=== PATIENT | female | born 1995 | race Caucasian/White ===

== ENCOUNTER 2021-03-11 09:37 | Emergency (ER) | payer OTHER ==
[~2021-03-11] VITALS: Ht 157.5 cm; Wt 70.8 kg
[2021-03-11 09:45] VITALS: BP 160/74
[2021-03-11] MEDS ORDERED: BUPIVACAINE MPF 0.5% 30 ML VIAL. ONE (09:55)
[2021-03-11] MEDS ORDERED: BUPIVACAINE MPF 0.25% 10 ML VIAL. IJ ONE (10:00)
--- NOTE | 2021-03-11 10:45 | RAD ---
EXAM: CHEST ONE VIEW. HISTORY: Cough. COMPARISON: None. FINDINGS: A frontal view of the chest is obtained. There are no confluent infiltrates. There is no pneumothorax or pleural effusion. The heart is not en larged. There is a mild to moderate thoracic dextroscoliosis. IMPRESSION: 1. No confluent infiltrates. Electronically signed by: Kenny Nguyen MD (03/11/2021 10:43 AM) [id number]
--- NOTE | 2021-03-11 10:45 | RAD ---
EXAM: Left lung clear, 3 views. HISTORY: Trauma. COMPARISON: None. FINDINGS: 3 views of the left lung finger are obtained. There is a displaced fracture of the tuft of the third distal phalanx with overlying soft tissue laceration. No radiodense foreign body is seen. IMPRESSION: Displaced fracture of the tuft of the third distal phalanx with overlying soft tissue lac eration. Electronically signed by: Addie Espinoza MD (03/11/2021 10:42 AM) [facility]
[2021-03-11] MEDS ORDERED: CEPHALEXIN 250 MG CAPSULE. PO ONE (11:00)
[2021-03-11 11:11] LABS: INFLUENZA A PATIENT NEGATIVE (NEGATIVE); INFLUENZA B PATIENT NEGATIVE (NEGATIVE)
--- NOTE | 2021-03-11 11:12 | PHYS DOC ---
Past Medical History Additional Past Medical Histor: Heart murmur has a child Past Surgical History: Tonsillectomy, Other Additional Past Surgical Histo: wisdom teeth Smoking Status: Never Smoker Alcohol Use: Occasionally General Adult EDM: Chief Complaint: LEFT MIDDLE FINGER INJURY HPI: HPI: Patient is a 26 year old FEMALE who presented to the ER for evaluation of left middle finger injury. Patient accidentally shut the door onto her left middle finger this morning when she was taking her dog out. Patient was up-to-date on her tetanus status. Patient had her first shot of COVID VACCINE last month, she did not have her second shot yet. Patient works as a nurse. She has have upper respiratory infection with nonproductive cough, nasal congestion for several days. Patient also has diarrhea. Patient has some fever and chills this morning, she took ibuprofen and Tylenol before coming here. Review of Systems: Review of Systems: Constitutional: Positive for fever and chills. [] Eyes: Denies change in visual acuity. [] HENT: Denies nasal congestion or sore throat. [] Respiratory: Positive for cough , no shortness of breath. [] Cardiovascular: Denies chest pain or edema. [] GI: Denies abdominal pain, nausea, vomiting, bloody stools, positive for diarrhea. : Denies dysuria. [] Musculoskeletal: Denies back pain or joint pain. Positive for left middle fin diana injury. Integument: Denies rash. [] Neurologic: Denies headache, focal weakness or sensory changes. [] Endocrine: Denies polyuria or polydipsia. [] Lymphatic: Denies swollen glands. [] Psychiatric: Denies depression or anxiety. [] Heart Score: C/O Chest Pain: N/A Risk Factors: Risk Factors: DM, Current or recent (<one month) smoker, HTN, HLP, family history of CAD, obesity. Risk Scores: Score 0 - 3: 2.5% MACE over next 6 weeks - Discharge Home Score 4 - 6: 20.3% MACE over next 6 weeks - Admit for Clinical Observation Score 7 - 10: 72.7% MACE over next 6 weeks - Early Invasive Strategies Current Medications: Current Medications Medications (Trade) Dose Ordered Sig/Vahid Start Time Stop Time Status Last Admin Dose Admin Bupivacaine HCl (Sensorcaine Mpf 0.5%) 30 ml STK-MED ONCE 03/11/21 09:55 03/11/21 09:56 DC Bupivacaine HCl (Sensorcaine-Mpf 0.25%) 10 ml 1X ONCE 03/11/21 10:00 03/11/21 10:05 DC 03/11/21 10:00 10 ML Cephalexin HCl (Keflex) 1,000 mg 1X ONCE 03/11/21 11:00 03/11/21 11:01 DC 03/11/21 10:54 1,000 MG Allergies: Allergies: Allergies Coded Allergies Type Severity Reaction Last Updated Verified No Known Drug Allergies 03/11/21 No Physical Exam: PE: Constitutional: Well developed, well nourished, no acute distress, non-toxic appearance. [] HENT: Normocephalic, atraumatic, bilateral external ears normal, oropharynx moist, no oral exudates, nose normal. [] Eyes: PERRLA, EOMI, conjunctiva normal, no discharge. [] Neck: Normal range of motion, no tenderness, supple, no stridor. [] Cardiovascular: sinus tachycardia, regular rhythm, no murmur [] Lungs & Thorax: Bilateral breath sounds clear to auscultation [] Abdomen: Bowel sounds normal, soft, no tenderness, no masses, no pulsatile masses. [] Skin: Warm, dry, no erythema, no rash. [] Back: No tenderness, no CVA tenderness. [] Extremities: partial amputation of tip of left middle finger on the dorsal surface, half of the nailbed laceration horizontally, the pad of the finger was intact. No pulsating bleeding. No other injury. Neurologic: Alert and oriented X 3, normal motor function, normal sensory function, no focal deficits noted. [] Psychologic: Affect normal, judgement normal, mood normal. [] Current Patient Data: Labs: Laboratory Tests Test 03/11/21 10:40 Influenza Type A Antigen Negative Influenza Type B Antigen Negative SARS-CoV-2 Antigen (Rapid) Negative Current Medications Medications (Trade) Dose Ordered Sig/Vahid Route PRN Reason Start Time Stop Time Status Last Admin Dose Admin Bupivacaine HCl (Sensorcaine-Mpf 0.25%) 10 ml 1X ONCE IJ 03/11/21 10:00 03/11/21 10:05 DC 03/11/21 10:00 Bupivacaine HCl (Sensorcaine Mpf 0.5%) 30 ml STK-MED ONCE .ROUTE 03/11/21 09:55 03/11/21 09:56 DC Cephalexin HCl (Keflex) 1,000 mg 1X ONCE PO 03/11/21 11:00 03/11/21 11:01 DC 03/11/21 10:54 Vital Signs: Vital Signs Date Time Temp Pulse Resp B/P (MAP) Pulse Ox O2 Delivery O2 Flow Rate FiO2 03/11/21 09:45 99.5 134 20 160/74 (102) 100 Room Air 99.5 EKG: EKG: [] Radiology/Procedures: Radiology/Procedures: [facility] [address] [place] [address] IMAGING REPORT Signed PATIENT: ZENAIDA NUNEZ ACCOUNT: [id number] : 1995 LOCATION: ER AGE: 26 SEX: F EXAM STATUS: REG ER ORD. PHYSICIAN: MIKE JOSEPH DO REASON: left middle finger injury PROCEDURE: FINGER(S) LEFT EXAM: Left lung clear, 3 views. HISTORY: Trauma. COMPARISON: None. FINDINGS: 3 views of the left lung finger are obtained. There is a displaced fracture of the tuft of the third distal phalanx with overlying soft tissue laceration. No radiodense foreign body is seen. IMPRESSION: Displaced fracture of the tuft of the third distal phalanx with overlying soft tissue laceration. Electronically signed by: Addie Phillips MD (03/11/2021 10:42 AM) [facility] DICTATED and SIGNED BY: ADDIE PHILLIPS MD DATE: 03/11/21 [id number] [facility] [address] [place] [address] IMAGING REPORT Signed PATIENT: ZENAIDA NUNEZ ACCOUNT: [id number] : 1995 LOCATION: ER AGE: 26 SEX: F EXAM STATUS: REG ER ORD. PHYSICIAN: MIKE JOSEPH DO REASON: cough for a few day PROCEDURE: CHEST AP ONLY EXAM: CHEST ONE VIEW. HISTORY: Cough. COMPARISON: None. FINDINGS: A frontal view of the chest is obtained. There are no confluent infiltrates. There is no pneumothorax or pleural effusion. The heart is not enlarged. There is a mild to moderate thoracic dextroscoliosis. IMPRESSION: 1. No confluent infiltrates. Electronically signed by: Kenny Nguyen MD (03/11/2021 10:43 AM) [id number] DICTATED and SIGNED BY: GERALDO NGUYEN MD DATE: 03/11/21 [id number] 0 Course & Med Decision Making: Course & Med Decision Making Pertinent Labs and Imaging studies reviewed. (See chart for details) Consulted Orthopedic surgeon distance education faculty liaison, Dr. Mukund Sterling, who came to the ER to repair the NAILBED laceration AND OPEN TUFT FRACTURE OF LEFT MIDDLE FINGER. Dragon Disclaimer: Dragon Disclaimer: This electronic medical record was generated, in whole or in part, using a voice recognition dictation system. Departure Departure Impression: Primary Impression: Open fracture of tuft of distal phalanx of finger Additional Impression: Person under investigation for COVID-19 Disposition: HOME / SELF CARE / HOMELESS Condition: IMPROVED Referrals: NO PCP (PCP) MUKUND STERLING DO Please follow up with Dr. Sterling or his partner Dr. Thomas next week. ISAEL THOMAS Jr. DO Patient Instructions: Finger Fracture Additional Instructions: Thank you for visiting our Emergency Department. We appreciate you trusting us with your care. If any additional problems come up don't hesitate to return to visit us. Please follow up with your primary care provider so they can plan parvez tional care if needed and know about the problem that you had. If symptoms worsen come back to the Emergency Department. Any concerning symptoms that start such as chest pain, shortness of air, weakness or numbness on one side of the body, running high fevers or any other concerning symptoms return to the ER. Scripts Hydrocodone/Acetaminophen (Hydrocodone-Acetamin 5-325 mg) 1 Each Tablet 1 EACH PO Q6HRS PRN for PAIN, #20 TAB Prov: MIKE JOSEPH DO 03/11/21 Amoxicillin/Potassium Clav (AUGMENTIN 875-125 TABLET) 1 Each Tablet 1 TAB PO BID for 10 Days, #20 TAB 0 Refills Prov: MIKE JOSEPH DO 03/11/21 MIKE JOSEPH DO Mar 11, 2021 11:12
[2021-03-11] MEDS ORDERED: AMOX1TAB61 PO (12:36)
[2021-03-11] MEDS ORDERED: HYDR-2759 PO (12:36)
--- NOTE | 2021-03-11 12:48 | PDOC2 ---
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 She denies any other injuries to this left middle finger. She was brought to the emergency department x-rays were obtained which showed that she did have a tuft fracture as well as a partially amputated left fingertip with a nailbed injury. Current Problem List Problem List Problems Medical Problems: (1) Open fracture of tuft of distal phalanx of finger Status: Acute Current Medications Current Medications Current Medications Bupivacaine HCl (Sensorcaine-Mpf 0.25%) 10 ml 1X ONCE IJ Last administered on 03/11/21at 10:00; Start 03/11/21 at 10:00; Stop 03/11/21 at 10:05; Status DC Bupivacaine HCl (Sensorcaine Mpf 0.5%) 30 ml STK-MED ONCE .ROUTE ; Start 03/11/21 at 09:55; Stop 03/11/21 at 09:56; Status DC Cephalexin HCl (Keflex) 1,000 mg 1X ONCE PO Last administered on 03/11/21at 10:54; Start 03/11/21 at 11:00; Stop 03/11/21 at 11:01; Status DC Active Scripts Active Hydrocodone-Acetamin 5-325 mg (Hydrocodone/Acetaminophen) 1 Each Tablet 1 Each PO Q6HRS PRN Augmentin 875-125 Tablet (Amoxicillin/Potassium Clav) 1 Each Tablet 1 Tab PO BID 10 Days Allergies Allergies: Coded Allergies: No Known Drug Allergies (Unverified , 03/11/21) Physical Exam Physical Exam This is a well-appearing [id number]-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 Examination of her left middle finger reveals that she has no other injuries besides the partial amputation. Her nailbed is injured as well the nail is not intact. She has no other obvious deformities. General: Oriented X3, Cooperative MUSCULOSKELETAL: Abnormal exam of left Vitals VITALS Vital Signs Date Time Temp Pulse Resp B/P (MAP) Pulse Ox O2 Delivery O2 Flow Rate FiO2 03/11/21 09:45 99.5 134 20 160/74 (102) 100 Room Air 99.5 Labs Labs Laboratory Tests Test 03/11/21 10:40 Influenza Type A Antigen Negative (NEGATIVE) Influenza Type B Antigen Negative (NEGATIVE) SARS-CoV-2 Antigen (Rapid) Negative (NEGATIVE) Laboratory Tests Test 03/11/21 10:40 Influenza Type A Antigen Negative (NEGATIVE) Influenza Type B Antigen Negative (NEGATIVE) SARS-CoV-2 Antigen (Rapid) Negative (NEGATIVE) Images Images Tuft fracture distal phalanx left middle finger Assessment/Plan Assessment/Plan We will irrigate and debride the left distal phalanx, she was irrigated with copious amounts of normal saline as well as cleaned with Betadine in a normal sterile fashion. Her nailbed was repaired in the emergency department as well as her partially amputated distal phalanx, she tolerated this procedure well she had a sterile dressing placed on her finger as well as a splint she will be sent home with orthopedic follow-up as soon as possible, she will be given antibiotics and pain medications, she will ice and elevate her left hand, there will be no use of her left hand as well until seen by orthopedics. She was discharged by the emergency department physician in stable condition. MUKUND STERLING DO Mar 11, 2021 12:48
--- NOTE | 2021-03-12 16:43 | NUR ---
IP: Informed pt of negative covid test. Pt verbalized understanding.
== END 2021-03-11 12:41 | disposition home or self-care (01) ==
LOC: ER 09:37
DX: S62.633B Displaced fracture of distal phalanx of left middle finger, initial encounter for open fracture (principal); S61.313A Laceration without foreign body of left middle finger with damage to nail, initial encounter; Z20.822 Contact with and (suspected) exposure to COVID-19; W23.0XXA Caught, crushed, jammed, or pinched between moving objects, initial encounter; Y93.89 Activity, other specified; Y92.89 Other specified places as the place of occurrence of the external cause; Y99.8 Other external cause status
CPT/HCPCS: 11760; 71045; 73140; 87426; 87804; 99285; J3490; U0003; U0005